=== PATIENT | female | born 1995 ===

== ENCOUNTER 2017-05-07 17:33 | Emergency (ER) | payer OTHER ==
[2017-05-07 17:33] VITALS: BMI 18.8
[2017-05-07 17:43] VITALS: BP 125/78; PULSE 74; RESP 16; TEMP 97.9; O2SAT 99
[2017-05-07] MEDS ORDERED: Sodium Chloride 0.9% 1,000 ML IV STA (18:25)
[2017-05-07] MEDS ORDERED: Alum-Mag Hydrox-Simethicone Susp (30 mL) PO STA (18:25)
[2017-05-07] MEDS ORDERED: Alum-Mag Hydrox-Simethicone Susp (30 mL) ONE (18:31)
[2017-05-07 18:54] LABS: BASO % 0.6 % (0.0-2.0); EOS # 0.1 K/uL (0.0-0.7); EOS % 1.1 % (0.0-4.0); HEMOGLOBIN 11.4 g/dL (12.0-16.0); LYMPH # 2.5 K/uL (1.0-4.3); LYMPH % 35.6 % (20.0-40.0); MEAN CELL VOLUME 82.7 fl (81.0-99.0); MEAN CORPUSCULAR HEMOGLOBIN 27.6 pg (27.0-31.0); MEAN CORPUSCULAR HGB CONC 33.4 g/dL (33.0-37.0); MEAN PLATELET VOLUME 9.4 fl (7.2-11.7); MONO # 0.7 K/uL (0.0-0.8); MONO % 9.4 % (0.0-10.0); NEUT # 3.7 K/uL (1.8-7.0); NEUT % 53.3 % (50.0-75.0); NRBC % 0.1 % (0.0-0.0); RBC 4.12 Mil/uL (3.80-5.20); RED CELL DISTRIBUTION WIDTH 12.6 % (11.5-14.5)
[2017-05-07 19:05] LABS: ALB/GLOB RATIO 1.2 (1.0-2.1); ALT/SGPT 32 U/L (9-52); AST/SGOT 34 U/L (14-36); BLOOD UREA NITROGEN 16 mg/dl (7-17); CALCIUM 8.9 mg/dL (8.4-10.2); GFR AFRICAN-AMERICAN > 60; GFR NON-AFRICAN AMERICAN > 60; LIPASE 133 U/L (23-300)
--- NOTE | 2017-05-07 19:07 | ED PDOC ---
HPI: Abdomen Time Seen by Provider: 05/07/17 17:42 Chief Complaint (Nursing): Abdominal Pain Chief Complaint (Provider): Epigastric pain since last night History Per: Patient History/Exam Limitations: no limitations Onset/Duration Of Symptoms: Days Outside of [place] travel?: No Current Symptoms Are (Timing): Still Present Location Of Pain/Discomfort: Epigastric Quality Of Discomfort: Cramping, Burning Associated Symptoms: denies: Fever, Chills, Nausea, Vomiting, Diarrhea, Loss Of Appetite Additional Complaint(s): Pt reports epigastric pain which began last night. PT did not take any medications for pain at home. PT reports similar in the past and was seen in ER. Everything in ER was normal and patient follow-up with GI doctor. Pt was told she had a yeast infection in her gut and took probiotics for a year (this was 2 years ago). Pt states she did not have colonoscopy completed. Past Medical History Reviewed: Historical Data, Nursing Documentation, Vital Signs Vital Signs: Last Vital Signs Temp 97.9 F 05/07/17 17:39 Pulse 74 05/07/17 17:39 Resp 16 05/07/17 17:39 BP 125/78 05/07/17 17:39 Pulse Ox 99 05/07/17 19:07 - Medical History PMH: No Chronic Diseases - Surgical History Surgical History: No Surg Hx - Family History Family History: States: Unknown Family Hx - Living Arrangements Living Arrangements: With Family - Social History Current smoker - smoking cessation education provided: No - Home Medications Home Medications: Ambulatory Orders Medication Instructions Recorded Naproxen [Naprosyn] 500 mg PO Q12H #20 tab 01/18/16 Famotidine [Pepcid] 20 mg PO BID #28 tab 05/07/17 - Allergies Allergies/Adverse Reactions: Allergies Allergy/AdvReac Type Severity Reaction Status Date / Time Latex, Natural Rubber Allergy RASH Verified 01/18/16 10:50 Review of Systems ROS Statement: Except As Marked, All Systems Reviewed And Found Negative Constitutional: Negative for: Fever, Chills Gastrointestinal: Positive for: Abdominal Pain. Negative for: Nausea, Vomiting Physical Exam - Reviewed Nursing Documentation Reviewed: Yes Vital Signs Reviewed: Yes - Physical Exam Appears: Positive for: Well, Non-toxic, No Acute Distress Head Exam: Positive for: ATRAUMATIC, NORMAL INSPECTION, NORMOCEPHALIC Skin: Positive for: Normal Color, Warm, DRY Eye Exam: Positive for: Normal appearance ENT: Positive for: Normal ENT Inspection Neck: Positive for: Normal, Painless ROM Cardiovascular/Chest: Positive for: Regular Rate, Rhythm Respiratory: Positive for: CNT, Normal Breath Sounds Gastrointestinal/Abdominal: Positive for: Normal Exam, Bowel Sounds, Soft. Negative for: Tenderness Back: Positive for: Normal Inspection Extremity: Positive for: Normal ROM Neurologic/Psych: Positive for: Alert, Oriented - Laboratory Results Result Diagrams: 05/07/17 18:49 05/07/17 18:49 - ECG O2 Sat by Pulse Oximetry: 99 Medical Decision Making Medical Decision Makin - Pt reports feeling better. Discussed probiotics and pepcid with patient. Patient will follow-up with her GI specialist. Disposition - Clinical Impression Clinical Impression: Epigastric pain - Patient ED Disposition Is Patient to be Admitted: No Counseled Patient/Family Regarding: Diagnosis, Need For Followup, Rx Given - Disposition Disposition: Routine/Home Disposition Time: 19:33 Condition: GOOD Prescriptions: Famotidine [Pepcid] 20 mg PO BID #28 tab Instructions: Gastritis Forms: [facility] (Guatemalan) Print Language: BELARUSIAN
== END 2017-05-07 20:05 | disposition home or self-care (01) ==
LOC: H.ER 17:33
DX: R10.13 Epigastric pain (principal)
CPT/HCPCS: 80053; 81025; 83690; 85025; 99283; J7040